=== PATIENT | male | born 1995 | race Hispanic/Latino ===

== ENCOUNTER 2017-12-31 22:02 | Emergency (ER) | payer OTHER ==
[2017-12-31 23:25] VITALS: BP 121/83
[2018-01-01] MEDS ORDERED: XYLOCAINE 1% MPF 5 mL INFILTRATI ONE (01:30)
[2018-01-01] MEDS ORDERED: XYLOCAINE 1% MPF 5 mL ONE (01:30)
--- NOTE | 2018-01-01 01:56 | Emergency Department Report ---
- General Chief complaint: Skin/Abscess/Foreign Body Stated complaint: LOWER TAIL BONE Time Seen by Provider: 01/01/18 01:28 Source: patient Mode of arrival: Ambulatory Limitations: No Limitations - History of Present Illness Initial comments: Patient is a 22-year-old white male who presents for abscess to buttocks times one month history of same 6 months ago Abscess is 1x2 cm with surrounding erythema and pain to touch fluctuant. there is no fever no abd pain no n/v MD complaint: abscess/boil Onset/Timin -: month(s) Tetanus Up to Date: yes Location: buttocks Severity: moderate Severity scale (0 -10): 5 Quality: burning, sharp Improves with: none Worsens with: palpation, movement Context: none Associated symptoms: itching Treatments Prior to Arrival: none - Related Data Previous Rx's Medication Instructions Recorded Last Taken Type Sulfamethoxazole/Trimethoprim 1 each PO BID #20 tablet 01/01/18 Unknown Rx [Bactrim DS TAB] Tramadol HCl [Ultram] 50 mg PO QID PRN 3 Days #12 tablet 01/01/18 Unknown Rx Allergies Allergy/AdvReac Type Severity Reaction Status Date / Time No Known Allergies Allergy Unverified 12/31/17 23:25 Abscess Boil HPI - HPI Chief Complaint: Skin/Abscess/Foreign Body Stated Complaint: LOWER TAIL BONE Time Seen by Provider: 01/01/18 01:28 Home Medications: Previous Rx's Medication Instructions Recorded Last Taken Type Sulfamethoxazole/Trimethoprim 1 each PO BID #20 tablet 01/01/18 Unknown Rx [Bactrim DS TAB] Tramadol HCl [Ultram] 50 mg PO QID PRN 3 Days #12 tablet 01/01/18 Unknown Rx Allergies/Adverse Reactions: Allergies Allergy/AdvReac Type Severity Reaction Status Date / Time No Known Allergies Allergy Unverified 12/31/17 23:25 ED Review of Systems ROS: Stated complaint: LOWER TAIL BONE Other details as noted in HPI Constitutional: denies: chills, fever Eyes: denies: eye pain, eye discharge, vision change ENT: denies: ear pain, throat pain Respiratory: denies: cough, shortness of breath, wheezing Cardiovascular: denies: chest pain, palpitations Endocrine: no symptoms reported Gastrointestinal: denies: abdominal pain, nausea, diarrhea Genitourinary: denies: urgency, dysuria Musculoskeletal: denies: back pain, joint swelling, arthralgia Skin: lesions (buttocks ). denies: rash Neurological: denies: headache, weakness, paresthesias Psychiatric: denies: anxiety, depression Hematological/Lymphatic: denies: easy bleeding, easy bruising ED Past Medical Hx - Past Medical History Previous Medical History?: No - Surgical History Past Surgical History?: No - Social History Smoking Status: Current Every Day Smoker Substance Use Type: None - Medications Home Medications: Home Medications Medication Instructions Recorded Confirmed Last Taken Type Sulfamethoxazole/Trimethoprim 1 each PO BID #20 tablet 01/01/18 Unknown Rx [Bactrim DS TAB] Tramadol HCl [Ultram] 50 mg PO QID PRN 3 Days #12 tablet 01/01/18 Unknown Rx ED Physical Exam - General Limitations: No Limitations General appearance: alert, in no apparent distress - Head Head exam: Present: atraumatic, normocephalic - Eye Eye exam: Present: normal appearance - ENT ENT exam: Present: mucous membranes moist - Neck Neck exam: Present: normal inspection - Respiratory Respiratory exam: Present: normal lung sounds bilaterally. Absent: respiratory distress - Cardiovascular Cardiovascular Exam: Present: regular rate, normal rhythm. Absent: systolic murmur, diastolic murmur, rubs, gallop - GI/Abdominal GI/Abdominal exam: Present: soft, normal bowel sounds - Rectal Rectal exam: Present: deferred - Extremities Exam Extremities exam: Present: normal inspection, full ROM, normal capillary refill - Back Exam Back exam: Present: normal inspection - Neurological Exam Neurological exam: Present: alert, oriented X3, normal gait - Psychiatric Psychiatric exam: Present: normal affect, normal mood - Skin Skin exam: Present: warm (1 eczema and is on), dry, intact, normal color, other (abscess left buttocks). Absent: rash ED Course Vital Signs 12/31/17 23:19 Temperature 99.6 F Pulse Rate 84 Respiratory 16 Rate Blood Pressure 121/83 O2 Sat by Pulse 98 Oximetry - I & D Left Type of Procedure: Simple Site: left bottocks Blade Size: 11 I & D Procedure: betadine prep, sterile dressing applied Progress: Mode service 1 minute 2 cm fluctuant area to touch warm to include Betadine solution anesthesia 1% lidocaine plain 3 mL incision with 11 blade scalpel 1 loculations broken with blunt probe via forceps Wound irrigated with 60 mL sterile saline and packed with quarter-inch iodoform approximately 4 inches sterile dressing applied all bleeding was controlled patient tolerated procedure given wound care instructions patient verbalizes understanding and agreement with same patient tolerated procedure with minimal distress. ED Medical Decision Making - Medical Decision Making Patient for I&D of buttocks abscess see procedure note patient tolerated procedure with minimal distress all bleeding controlled sterile dressing is intact patient will be DC'd home in stable condition at this time prescription for Bactrim by mouth Ultram by mouth when necessary pain patient will follow up with PCP in 2-3 days patient is and o ambulatoryt gate steady dc' to home in stable condition Critical care attestation.: If time is entered above; I have spent that time in minutes in the direct care of this critically ill patient, excluding procedure time. ED Disposition Clinical Impression: Abscess of buttock, left Disposition: DC-01 TO HOME OR SELFCARE Is pt being admited?: No Does the pt Need Aspirin: No Condition: Good Instructions: Abscess (ED), Incision and Drainage (ED), Acute Wound Care (ED) Prescriptions: Sulfamethoxazole/Trimethoprim [Bactrim DS TAB] 1 each PO BID #20 tablet Tramadol HCl [Ultram] 50 mg PO QID PRN 3 Days #12 tablet PRN Reason: pain Referrals: PRIMARY CARE,MD [Primary Care Provider] - 3-5 Days Forms: Work/School Release Form(ED) Time of Disposition: 02:13
[2018-01-01] MEDS ORDERED: BACTRIM DS PO ONE (02:13)
[2018-01-01] MEDS ORDERED: ULTRAM PO ONE (02:13)
== END 2018-01-01 02:35 | disposition home or self-care (01) ==
LOC: ED 22:02
DX: L02.31 Cutaneous abscess of buttock (principal); F17.200 Nicotine dependence, unspecified, uncomplicated
CPT/HCPCS: 99282